=== PATIENT | male | born 1995 | race Caucasian/White ===

== ENCOUNTER 2021-02-20 18:25 | Emergency (ER) ==
[~2021-02-20] VITALS: Ht 177.8 cm; Wt 84.1 kg
== END 2021-02-20 20:17 | disposition left against medical advice (07) ==
LOC: COL.ER 18:25
DX: M54.5 Low back pain (principal)

== ENCOUNTER 2021-02-23 16:15 | Emergency (ER) | payer OTHER ==
[~2021-02-23] VITALS: Ht 177.8 cm; Wt 84.1 kg
[2021-02-23 16:24] VITALS: BP 133/88; TEMP 98.8
[2021-02-23 18:18] VITALS: PULSE 70
== END 2021-02-23 18:19 | disposition home or self-care (01) ==
LOC: COL.ER 16:15
DX: M54.42 Lumbago with sciatica, left side (principal); X50.0XXA Overexertion from strenuous movement or load, initial encounter